=== PATIENT | male | born 2000 | race African-American/Black ===

== ENCOUNTER 2021-04-23 14:27 | Emergency (ER) | payer BC, SELFPAY ==
[2021-04-23 15:29] VITALS: BP 117/70; PULSE 77; RESP 18; TEMP 36.7; O2SAT 99; BMI 27.8
[2021-04-23 16:01] LABS: Strep A Nucleic Acid Negative (Negative)
[2021-04-23 16:06] LABS: COVID-19 Test Negative (Negative)
--- NOTE | 2021-04-23 17:01 | ED.URI ---
HPI - URI/Sore Throat General Chief Complaint: Upper Respiratory Symptoms Stated Complaint: Asthma Time Seen by Provider: 04/23/21 16:30 Source: patient Mode of arrival: ambulatory Limitations: no limitations History of Present Illness HPI Narrative: 20 yo male with history of mild intermittent asthma presents to the ER with 2 days of nasal congestion, sore throat and SOB. He has been using his nebulizer at home with brief improvement. He has a mild dry cough but no sputum production. No chest pain. No fever or chills. He has intermittent headache and generally feels unwell. No known sick contacts. MD elicited complaint: cough, sore throat and nasal congestion Onset (ago): day(s) (2) Consistency: intermittent Severity: mild Able to tolerate fluids by mouth: Yes Exacerbating factors: nothing Relieving factors: OTC cold medicine Associated symptoms: headache, nasal congestion, sore throat and shortness of breath Treatments prior to arrival: none Related Data Previous Rx's Medication Instructions Recorded albuterol sulfate 1 inh INHALATION QID PRN #6.7 g 04/23/21 azithromycin [Zithromax Z-Rafat] See Rx Instructions .ROUTE 04/23/21 .COMPLEX #6 tab prednisone 40 mg PO DAILY 5 Days #10 tab 04/23/21 Allergies Allergy/AdvReac Type Severity Reaction Status Date / Time aspirin Allergy Swelling Verified 04/23/21 15:28 Penicillins Allergy Rash Verified 04/23/21 15:28 Review of Systems Review of Systems: Constitutional: No Fever, No Chills ENT/Mouth: + sore throat, No Rhinorrhea, No Swallowing Difficulty Cardiovascular: No Chest Pain, + SOB, No Orthopnea, No Edema Respiratory: + Cough, No Sputum, No Wheezing, No dyspnea Gastrointestinal: No Nausea, No Vomiting, No Diarrhea, No abdominal Pain Musculoskeletal: No joint pain, No Myalgias Skin: No Skin Lesions, No rash Neuro: No Weakness, No Numbness, No Dizziness, + Headache Heme/Lymph: No Bruising, No Lymphadenopathy PMFSH Past Medical History Attestation statement: The following information was validated with the patient. Social History Social History Advance Directives: No Advance Directives Information Provided: Yes Physical Exam Vital Signs: Vital Signs: Last Vital Signs Temp 98.0 F 04/23/21 15:29 Pulse 77 04/23/21 15:29 Resp 18 04/23/21 15:29 BP 117/70 04/23/21 15:29 Pulse Ox 99 04/23/21 15:29 Body Mass Index 27.8 Appearance: Alert. Oriented X3. No acute distress. Eyes: Pupils equal, round and reactive to light. ENT: Pharynx normal. Clear nasal discharge. No sinus tenderness Neck: Normal inspection. Neck supple. CVS: Normal heart rate and rhythm. Pulses normal. Respiratory: No respiratory distress. Breath sounds normal. No wheezing or rhonchi Abdomen: Soft and nontender. +BS x4 Skin: Skin warm and dry. Normal skin color. Normal skin turgor. No rashes. Extremities: No lower extremity edema. Neuro: Oriented X 3. No motor deficit. No sensory deficit. Course Course Course Narrative: 20 y/o male with history of asthma presenting with mild URI symptoms. His VS are stable and he appears well. COVID and Strep are negative. Will treat for acute bronchitis/URI and have him f/u with PCP PRN. Stable for d/c home. MDM - URI/Sore Throat Lab Data Labs: Lab Results 04/23/21 04/23/21 Range/Units 15:39 15:39 COVID-19 (ROXY) Negative (Negative) COVID-19 Clin Com See Note S. pyogenes GrpA JAY Negative (Negative) Discharge Plan Discharge Clinical Impression: Upper respiratory infection Qualifiers: URI type: unspecified URI Qualified Code(s): J06.9 - Acute upper respiratory infection, unspecified Patient Disposition: Home, Self-Care Instructions: Acute Bronchitis (ED) Additional Instructions: Your COVID and Strep tests are negative. Take the prescribed medications as directed. Follow up with your doctor as needed. Rest and drink plenty of fluids. If you have worsening symptoms come back to the ER for further evaluation. Prescriptions: New azithromycin [Zithromax Z-Rafat] 250 mg tablet See Rx Instructions .ROUTE .COMPLEX Qty: 6 RF: 0 prednisone 20 mg tablet 40 mg PO DAILY 5 Days Qty: 10 RF: 0 albuterol sulfate 90 mcg/actuation HFA aerosol inhaler 1 inh inhalation QID PRN (Reason: shortness of breath or wheezing) Qty: 6.7 RF: 0 Stand Alone Forms: Work/School Release
== END 2021-04-23 17:29 | disposition home or self-care (01) ==
PROVIDERS: Physician Assistant; Emergency Provider Emergency Medicine
DX: J06.9 Acute upper respiratory infection, unspecified (principal); J45.20 Mild intermittent asthma, uncomplicated; Z20.822 Contact with and (suspected) exposure to COVID-19
CPT/HCPCS: 36415; 87635; 87651; 99283

== ENCOUNTER 2021-11-07 06:05 | Emergency (ER) | payer BC, SELFPAY ==
[2021-11-07 06:16] VITALS: BP 107/57; PULSE 65; RESP 18; TEMP 36.3; O2SAT 99; BMI 29.2
[2021-11-07 06:36] LABS: COVID-19 Test Positive (Negative); IDNOW Serial# 9DD0AD1C
--- NOTE | 2021-11-07 09:31 | ED.URI ---
HPI - URI/Sore Throat General Chief Complaint: Upper Respiratory Symptoms Stated Complaint: Covid symptoms Time Seen by Provider: 11/07/21 09:13 Source: patient Mode of arrival: ambulatory Limitations: language barrier (French-speaking) History of Present Illness HPI Narrative: 21-year-old male presenting to the ED with COVID like symptoms for the past 2 days. Reports that he is vaccinated with the Moderna vaccine with 2 vaccines. Positive exposure girlfriend tested positive for COVID yesterday. Patient denies any other symptoms. MD elicited complaint: fever, cough and other (Body aches) Onset (ago): day(s) (2) Consistency: constant and progressively worsening Severity: mild Able to tolerate fluids by mouth: Yes Exacerbating factors: nothing Relieving factors: nothing Context: sick contacts (Girlfriend just tested positive for COVID-19 yesterday) Associated symptoms: chills, myalgias, cough and other (And intermittent wheezing/chest tightness due to his asthma) Treatments prior to arrival: none Related Data Previous Rx's Medication Instructions Recorded albuterol sulfate 90 mcg/actuation 1 inh INHALATION QID PRN #6.7 g 04/23/21 aerosol inhaler azithromycin 250 mg tablet See Rx Instructions .ROUTE 04/23/21 (Zithromax Z-Rafat) .COMPLEX #6 tab prednisone 20 mg tablet 40 mg PO DAILY 5 Days #10 tab 04/23/21 albuterol sulfate 90 mcg/actuation 1 inh INHALATION QID PRN #8.5 g 11/07/21 aerosol inhaler azithromycin 250 mg tablet See Rx Instructions .ROUTE 11/07/21 .COMPLEX #6 tab codeine 10 mg-guaifenesin 100 mg/5 5 ml PO Q6H PRN #120 ml 11/07/21 mL oral liquid (Guaifenesin AC) prednisone 20 mg tablet 40 mg PO DAILY 5 Days #10 tab 11/07/21 Allergies Allergy/AdvReac Type Severity Reaction Status Date / Time aspirin Allergy Swelling Verified 04/23/21 15:28 Penicillins Allergy Rash Verified 04/23/21 15:28 Review of Systems Review of Systems: Constitutional : Positive fever/chills/fatigue/malaise, No Weight loss, No Night Sweats ENT/Mouth : No Hearing loss, No Ear Pain, No Nasal Congestion, No Sinus Pain, No Hoarseness, No sore throat, No Rhinorrhea, No Swallowing Difficulty Eyes: No Eye Pain, No Swelling, No Redness, No Foreign Body, No Discharge, No Vision Changes Cardiovascular : No Chest Pain, No SOB, No Dyspnea on Exertion, No Orthopnea, No Edema, No Palpitations Respiratory : Positive cough with wheezing, No Sputum, No Smoke Exposure, No Dyspnea Gastrointestinal : No Nausea, No Vomiting, No Diarrhea, No Constipation, No abdominal Pain, No Hematochezia, No Melena Genitourinary : no irregular bleeding, No Dysuria, No Urinary Frequency, No Hematuria, No Urinary Incontinence, No Urgency, No Flank Pain, No Urinary Flow Changes, No Hesitancy Musculoskeletal : No joint pain, No Myalgias, No Joint Swelling Skin : No Skin Lesions, No rash Neuro : No Weakness, No Numbness, No Paresthesias, No Loss of Consciousness, No Dizziness, No Headache Psych : No Anxiety/Panic, No Depression, No SI/HI/AH/VH, No Social Issues, Heme/Lymph: No Bruising, No Bleeding,No Lymphadenopathy Endocrine : No Polyuria, No Polydipsia, No Temperature Intolerance Yes all other systems are reviewed and are negative [facility] Past Medical History Attestation statement: The following information was validated with the patient. Social History Social History Advance Directives: No Physical Exam Vital Signs: Vital Signs: Last Vital Signs Temp 97.4 F 11/07/21 06:16 Pulse 65 11/07/21 06:16 Resp 18 11/07/21 06:16 BP 107/57 L 11/07/21 06:16 Pulse Ox 99 11/07/21 06:16 BMI result Body Mass Index 29.2 vital signs have been reviewed as normal and appeared to be correct. Blood pressure normal. Heart rate normal. Respiration rate normal. Temperature normal. Oxygen saturation normal. Appearance: Alert. Oriented X3. No acute distress. Head: Normal external exam. Normocephalic. Atraumatic. Eyes: PERRLA. EOMI. Conjunctiva and sclera normal. Eyelids normal. ENT: EAC normal. TM's Normal. Pharynx normal. Uvula midline. Moist mucous membranes. No trismus noted. No drooling noted. No muffled voice noted. Neck: Normal inspection. Neck supple. FROM. No adenopathy. Thyroid Normal. No meningeal signs. No neck mass noted. CVS: Normal heart rate and rhythm. Heart sound normal. Pulses normal throughout. No murmurs/rales/gallops. Respiratory: No respiratory distress. Painless inspiration. Breath sounds normal. No wheezes/rales/rhonchi noted. Chest nontender. No accessory muscle usage noted or decreased air movement noted. Abdomen: Soft and nontender. Bowel sounds normal in all 4 quadrants. No distention noted. No organomegaly noted. No visible injury noted. Back: Full range of motion noted. No rashes/lesion/induration/fluctuance or signs of infection noted. Skin: Skin warm and dry. Normal skin color. Normal skin turgor. No rashes/lesions/lacerations noted. Extremities: Extremities exhibit normal range of motion. Extremities nontender. Neuro: Oriented X 3. No motor deficit. No sensory deficit. Reflexes normal. Normal steady gait. No focal neuro deficits noted. Vascular: + radial pulses/+ 2 distal pedal pulses/+2 dorsalis pedis b/l. Normal cap refill. No cyanosis noted to upper extremity nails and lower extremity toes nails. Course Course Course Narrative: Patient positive for COVID. Vital signs remained stable within normal limits. Lungs clear to auscultation. CV RRR. Abdomen is soft nontender. Will explain that he needs to follow CDC guidelines for quarantine/restrictions. Insert return if any new or worsening symptoms follow-up with primary care provider. Patient understands agrees this plan. MDM - URI/Sore Throat Medical Records Attestation: I reviewed the patient's medical records. Lab Data Attestation: I reviewed the patient's lab results. Labs: Lab Results 11/07/21 Range/Units 06:24 COVID-19 (ROXY) Positive A (Negative) COVID-19 Clin Com See Note Discharge Plan Discharge Clinical Impression: COVID-19 Patient Disposition: Home, Self-Care Instructions: COVID-19 (Coronavirus Disease 2019) (ED) Additional Instructions: Please follow CDC guidelines for COVID restrictions/isolation/quarantine guidelines. Prescriptions: New azithromycin 250 mg tablet See Rx Instructions .ROUTE .COMPLEX Qty: 6 RF: 0 codeine-guaifenesin [Guaifenesin AC] 10-100 mg/5 mL liquid 5 ml PO Q6H PRN (Reason: cold symptoms) Qty: 120 RF: 0 albuterol sulfate 90 mcg/actuation HFA aerosol inhaler 1 inh inhalation QID PRN (Reason: shortness of breath or wheezing) Qty: 8.5 RF: 0 prednisone 20 mg tablet 40 mg PO DAILY 5 Days Qty: 10 RF: 0 No Action azithromycin [Zithromax Z-Rafat] 250 mg tablet See Rx Instructions .ROUTE .COMPLEX Qty: 6 RF: 0 prednisone 20 mg tablet 40 mg PO DAILY 5 Days Qty: 10 RF: 0 albuterol sulfate 90 mcg/actuation HFA aerosol inhaler 1 inh inhalation QID PRN (Reason: shortness of breath or wheezing) Qty: 6.7 RF: 0 Referrals: Physician,None [Primary Care Provider] - 2 days (Your PCP) Stand Alone Forms: Work/School Release Print Language: French
== END 2021-11-07 09:53 | disposition home or self-care (01) ==
PROVIDERS: Emergency Provider Internal Medicine
DX: U07.1 COVID-19 (principal); J45.909 Unspecified asthma, uncomplicated
CPT/HCPCS: 87635; 99283

== ENCOUNTER 2021-11-14 07:14 | Emergency (ER) | payer BC, SELFPAY ==
[2021-11-14 07:21] VITALS: BP 126/74; PULSE 74; RESP 18; TEMP 35.1; O2SAT 98; BMI 30.7
--- NOTE | 2021-11-14 09:01 | ED.URI ---
HPI - URI/Sore Throat General Chief Complaint: Upper Respiratory Symptoms Stated Complaint: dry cough body aches weak covid + Time Seen by Provider: 11/14/21 08:58 Source: patient Mode of arrival: ambulatory Limitations: no limitations History of Present Illness HPI Narrative: 21-year-old male past medical history significant for asthma and a recent diagnosis of COVID-19 on November 07, 2021 presents to the emergency department in hopes to obtain a note for work as patient is still not feeling 100%. Patient tells me that he is still experiencing a dry cough, body aches, malaise and at time shortness of breath on exertion. He denies chest pain, weakness, headache, vision changes. MD elicited complaint: cough Pertinent past history: other (COVID positive on November 07, 2021) Onset (ago): day(s) (7) Consistency: constant Severity: moderate Able to tolerate fluids by mouth: Yes Exacerbating factors: exertion (Shortness of breath on exertion.) Relieving factors: nothing Associated symptoms: myalgias Treatments prior to arrival: none Related Data Previous Rx's Medication Instructions Recorded albuterol sulfate 90 mcg/actuation 1 inh INHALATION QID PRN #6.7 g 04/23/21 aerosol inhaler azithromycin 250 mg tablet See Rx Instructions .ROUTE 04/23/21 (Zithromax Z-Rafat) .COMPLEX #6 tab prednisone 20 mg tablet 40 mg PO DAILY 5 Days #10 tab 04/23/21 albuterol sulfate 90 mcg/actuation 1 inh INHALATION QID PRN #8.5 g 11/07/21 aerosol inhaler azithromycin 250 mg tablet See Rx Instructions .ROUTE 11/07/21 .COMPLEX #6 tab codeine 10 mg-guaifenesin 100 mg/5 5 ml PO Q6H PRN #120 ml 11/07/21 mL oral liquid (Guaifenesin AC) prednisone 20 mg tablet 40 mg PO DAILY 5 Days #10 tab 11/07/21 albuterol sulfate 90 mcg/actuation 2 inh INHALATION Q4-6H PRN #1 ea 11/14/21 breath activated powder inhaler benzonatate 100 mg capsule 100 mg PO BID PRN #14 cap 11/14/21 Allergies Allergy/AdvReac Type Severity Reaction Status Date / Time aspirin Allergy Swelling Verified 04/23/21 15:28 Penicillins Allergy Rash Verified 04/23/21 15:28 Review of Systems Review of Systems: Constitutional : No Fever, + Chills, + fatigue, + Malaise ENT/Mouth : No sore throat, No runny nose Eyes: No Discharge Cardiovascular : No Chest Pain, No SOB, + SOB on exertion Respiratory : + Cough, No Sputum Gastrointestinal : No Nausea, No Vomiting, No Diarrhea Genitourinary : No Dysuria, No Urinary Frequency Musculoskeletal : positive Myalgia Skin : No rash Neuro : No Headache Yes all other systems are reviewed and are negative [facility] Past Medical History Attestation statement: The following information was validated with the patient. Source: old records reviewed and nursing notes reviewed Medical History Asthma Social History Social History Advance Directives: No Advance Directives Information Provided: No Physical Exam Vital Signs: Vital Signs: Last Vital Signs Temp 95.2 F L 11/14/21 07:21 Pulse 74 11/14/21 07:21 Resp 18 11/14/21 07:21 BP 126/74 11/14/21 07:21 Pulse Ox 98 11/14/21 07:21 BMI result Body Mass Index 30.7 VSS Appearance: Alert.? Oriented X3.? No acute distress.? Head: Normocephalic, atraumatic, no step-offs or deformities Eyes: Pupils equal, round and reactive to light.? Neck: Normal inspection.? Neck supple.? CVS: Normal heart rate and rhythm.? Pulses normal.? Respiratory: No respiratory distress.? Breath sounds normal.? Abdomen: Soft and nontender.? Skin: Skin warm and dry.? Normal skin color.? Normal skin turgor.? Extremities: No lower extremity edema.? No calf ttp. 5/5 strength to bilateral upper and lower extremities Back: No midline tenderness, no C-spine tenderness, full range of motion, no CVA tenderness bilaterally Neuro: Oriented X 3.? No motor deficit.? No sensory deficit. Course Reevaluation(s) Reevaluation #1: Vital signs stable even after ambulation. I went back in the room to discuss discharge information with the patient, I have advised him to return to the emergency department with new or worsening symptoms. I have also advised him to alternate ibuprofen and Tylenol as tolerated for pain/body aches/fevers. I have given him strict return precautions an outline numb on his discharge. I feel comfortable discharge home. MDM - URI/Sore Throat MDM Narrative Medical decision making narrative: 0900 21 yo M presents to obtain a work note dx w/ COVID on November 07, 2021 and is still not feeling well enough to return to work. Physical examination benign. Vital signs stable. Plan at this time is to discharge patient home. Medical Records Attestation: I reviewed the patient's medical records. Lab Data Attestation: I reviewed the patient's lab results. Critical Care Time Critical Care Time Critical Care Time: No Discharge Plan Discharge Clinical Impression: COVID-19 Patient Disposition: Home, Self-Care Instructions: COVID-19 (Coronavirus Disease 2019) (ED) Additional Instructions: Take your medications as prescribed. If you were prescribed antibiotics today, it is important that you take your medication to their entirety, do not skip any doses, do not finish them early. Take Ibuprofen or Tylenol as needed for fevers or body aches. Quarantine for 5 days and ensure you wear a mask. After 5 days you should wear a mask for an additional 5 days after that. Practice social distancing and good hand hygiene. Drink plenty of fluids. Follow-up with your primary care provider this week. Return to the emergency department with new or worsening symptoms. In case of emergency call 911 You can purchase a pulse oximeter from your local pharmacy or grocery store, and monitor your oxygen saturation if it goes below 94% you should return to the emergency department for further evaluation. Prescriptions: New benzonatate 100 mg capsule 100 mg PO BID PRN (Reason: cough) Qty: 14 RF: 0 albuterol sulfate 90 mcg/actuation aerosol powdr breath activated 2 inh inhalation Q4-6H PRN (Reason: shortness of breath) Qty: 1 RF: 0 No Action azithromycin [Zithromax Z-Rafat] 250 mg tablet See Rx Instructions .ROUTE .COMPLEX Qty: 6 RF: 0 prednisone 20 mg tablet 40 mg PO DAILY 5 Days Qty: 10 RF: 0 albuterol sulfate 90 mcg/actuation HFA aerosol inhaler 1 inh inhalation QID PRN (Reason: shortness of breath or wheezing) Qty: 6.7 RF: 0 azithromycin 250 mg tablet See Rx Instructions .ROUTE .COMPLEX Qty: 6 RF: 0 codeine-guaifenesin [Guaifenesin AC] 10-100 mg/5 mL liquid 5 ml PO Q6H PRN (Reason: cold symptoms) Qty: 120 RF: 0 albuterol sulfate 90 mcg/actuation HFA aerosol inhaler 1 inh inhalation QID PRN (Reason: shortness of breath or wheezing) Qty: 8.5 RF: 0 prednisone 20 mg tablet 40 mg PO DAILY 5 Days Qty: 10 RF: 0 Referrals: Physician,Unknown J [Primary Care Provider] - 2 days Stand Alone Forms: Work/School Release Print Language: Guyanese
== END 2021-11-14 09:33 | disposition home or self-care (01) ==
PROVIDERS: Emergency Provider Emergency Medicine
DX: U07.1 COVID-19 (principal); J45.909 Unspecified asthma, uncomplicated
CPT/HCPCS: 99283